=== PATIENT | female | born 1985 | race Caucasian/White ===

== ENCOUNTER 2016-12-09 10:11 | Inpatient (IN) | payer MEDICAID ==
[2016-12-09] VITALS (8 sets, daily range): BP systolic 103–135; RESP 18; TEMP 98–98.3; Ht 172.7 cm; Wt 141.1 kg
[~2016-12-09] VITALS: Ht 172.7 cm; Wt 141.1 kg
[~2016-12-09 10:11] MED LIST: BUPIVACAINE 0.25% PF 10ML EPIDURAL ONE
[2016-12-09] MEDS ORDERED: LACT RINGERS 1,000 ML IV SCH (10:55)
[2016-12-09] MEDS ORDERED: PROMETHAZINE 25 MG/ML VIAL IV PRN (10:55)
[2016-12-09] MEDS ORDERED: ALU/MAG/SIM 30 ML UDC PO PRN (10:55)
[2016-12-09] MEDS ORDERED: TERBUTALINE 1 MG/ML VIAL SUBQ PRN (10:55)
[2016-12-09] MEDS ORDERED: LIDOCAINE 1% BUFFERED 1 ML SYR INTRADERM PRN (10:55)
[2016-12-09] MEDS ORDERED: ACETAMINOPHEN 325 MG TAB PO PRN (10:55)
[2016-12-09] MEDS ORDERED: FAMOTIDINE 20 MG INJ IV PRN (10:55)
[2016-12-09] MEDS ORDERED: FAMOTIDINE 20 MG TAB PO PRN (10:55)
[2016-12-09] MEDS ORDERED: LIDOCAINE 1% 30 ML PF INFILTRATE ONE (10:55)
[2016-12-09] MEDS ORDERED: ONDANSETRON 4 MG VIAL IV PRN (10:55)
[2016-12-09] MEDS ORDERED: METOCLOPRAMIDE 10 MG/2 ML VIAL IV PUSH PRN (10:55)
[2016-12-09] MEDS ORDERED: CEFAZOLIN 3,000 MG in SODIUM CHLORIDE 0.9% 100 ML IV PRN (10:55)
[2016-12-09] MEDS ORDERED: ROPIV/FENT 0.2%-2MCG/ML 100 ML EPIDURAL ONE (11:50)
[2016-12-09] MEDS ORDERED: FENTANYL 100 MCG/2 ML AMP ONE (11:54)
[2016-12-09] MEDS ORDERED: SODIUM CHLORIDE 0.9% 500 ML IV PRN (12:45)
[2016-12-09] MEDS ORDERED: LACT RINGERS 500 ML IV PRN (12:45)
[2016-12-09] MEDS ORDERED: ROPIV/FENT 0.2%-2MCG/ML 100 ML EPIDURAL SCH (12:45)
[2016-12-09] MEDS ORDERED: LACT RINGERS 500 ML IV ONE (12:45)
[2016-12-09] MEDS ORDERED: FENTANYL 100 MCG/2 ML AMP EPIDURAL ONE (12:45)
[2016-12-09] MEDS: OXYTOCIN 15 UNITS/250 ML NS 250 ML IV SCH ×4 (18:40→19:00)
[2016-12-09] MEDS ORDERED: MEASLES,MUMPS,RUBELLA VAC SUBQ.VACC ONE (18:55)
[2016-12-09] MEDS ORDERED: MAG HYDROX 30 ML UDC PO PRN (18:55)
[2016-12-09] MEDS ORDERED: ZOLPIDEM 5 MG TAB PO PRN (18:55)
[2016-12-09] MEDS ORDERED: TDaP 0.5 ML VIAL IM.VACC ONE (18:55)
[2016-12-09] MEDS ORDERED: DERMOPLAST SPRAY TOPICAL PRN (18:55)
[2016-12-09] MEDS ORDERED: **ONLY ANESTEHSIA MAY ORDER OPIATES WHILE ON EPIDURAL XX SCH (20:00)
[2016-12-10 01:23] VITALS: BP_SYST 124; RESP 18; TEMP 97.5
[2016-12-10] MEDS: Ibuprofen 600 MG TAB PO PRN ×3 (02:14→19:16)
[2016-12-10] MEDS: OXYCODONE/APAP 5/325 TAB PO PRN ×3 (04:15→23:21)
[2016-12-10 05:19] VITALS: BP_SYST 111; RESP 18; TEMP 97.7
[2016-12-10] MEDS: ASTRINGENT MED PADS 40'S TOPICAL PRN (06:42)
[2016-12-10] MEDS: DOCUSATE SOD 100 MG CAP PO SCH (09:21)
[2016-12-10 10:50] VITALS: BP_SYST 108; RESP 18; TEMP 97.7
[2016-12-10 13:12] VITALS: BP_SYST 123; RESP 20; TEMP 97.6
[2016-12-10 17:02] VITALS: BP_SYST 119; RESP 20; TEMP 97.8
[2016-12-11 05:32] VITALS: BP_SYST 112; RESP 20; TEMP 97.5
[2016-12-11] MEDS: DOCUSATE SOD 100 MG CAP PO SCH (07:44)
[2016-12-11] MEDS: Ibuprofen 600 MG TAB PO PRN (07:45)
[2016-12-11] MEDS: OXYCODONE/APAP 5/325 TAB PO PRN (07:46)
[2016-12-11 09:19] VITALS: BP_SYST 127; RESP 18; RESP 20; TEMP 98.1
[2016-12-11] MEDS: ASTRINGENT MED PADS 40'S TOPICAL PRN (10:31)
== END 2016-12-11 12:15 | disposition home or self-care (01) | DRG 775 ==
LOC: LDOP 10:11 → LD 10:56 → OB 21:00
PROVIDERS: ADMIT Obstetrics & Gynecology; ATTEND Obstetrics & Gynecology
PROC: 10E0XZZ Delivery of Products of Conception, External Approach (ICD-10-PCS; principal; 2016-12-09)
PROC: 10907ZC Drainage of Amniotic Fluid, Therapeutic from Products of Conception, Via Natural or Artificial Opening (ICD-10-PCS; 2016-12-09)
PROC: 0HQ9XZZ Repair Perineum Skin, External Approach (ICD-10-PCS; 2016-12-09)
DX: O70.0 First degree perineal laceration during delivery (principal); Z37.0 Single live birth; Z3A.39 39 weeks gestation of pregnancy
CPT/HCPCS: 80053; 80307; 81002; 85025; 86850; 86870; 86900; 86901; 86970